=== PATIENT | female | born 1965 | race Caucasian/White ===

== ENCOUNTER → 2016-10-16 | Outpatient (CLI) | payer BC ==
[~2016-10-16] MED LIST: CITRACAL+D(315M1 TAB PO; COZAAR100 MG PO; IBUPROFEN800 MG PO; NEXIUM40 MG PO; PERCOCET 5-3251 EACH PO; TENORMIN50 MG PO; VITAMIN D1000 UNI1 PO; ZOCOR40 MG PO
== END | disposition disaster alternative care site (69) ==
LOC: GBCOE 10-09 12:30
DX: Z12.31 Encounter for screening mammogram for malignant neoplasm of breast (principal); Z13.820 Encounter for screening for osteoporosis
CPT/HCPCS: G0202